=== PATIENT | female | born 1935 | race Caucasian/White ===

== ENCOUNTER 2018-08-12 17:20 | Emergency (ER) | payer MEDICARE ==
[2018-08-12 18:27] LABS: Bilirubin Small (Negative); Blood, Urine Trace (Negative); Clarity Hazy (Clear); Glucose, Urine (Dipstick) Negative (Negative); Leukocyte Small (Negative); Nitrite Positive (Negative); Protein, Urine (Dipstick) 30 mg/dL (Neg-Trace); Urobilinogen 0.2 mg/dL (0.2-1.0); pH, Urine 6.5 (5.0-9.0)
--- NOTE | 2018-08-12 18:30 | CT ---
FCT thoracic spine noncontrast: 08/12/2018 HISTORY: 82-year-old female with persistent thoracic spine pain after fall 6 days ago. FINDINGS: There is compression deformity of the T10 vertebral body with approximately 75% loss of height and mi ld bony retropulsion. Fracture lucencies are visible. There is mild soft tissue edema in the preverte bral space at this level. The rest of the thoracic vertebral body heights are maintained. Pedicles an d posterior elements are intact. IMPRESSION: Acute/subacute traumatic burst fracture of T10
[2018-08-12 18:31] LABS: Bacteria/HPF 3+ HPF (None Seen); RBC/HPF 0-3 HPF (0-3)
--- NOTE | 2018-08-12 18:39 | CT ---
FCT lumbar spine noncontrast: 08/12/2018 HISTORY: 82-year-old female with low back pain after fall 6 days ago FINDINGS: There are 5 lumbar-type vertebrae. Vertebral body heights are maintained. No fracture is identified. At L1-2 there is moderate to severe degenerative disc disease. At L4-5 there is severe bilateral degenerative facet disease causing a grade 1 anterolisthesis of L4 on L5, and this, together with ligamentum flavum thickening, results in severe central spinal canal s tenosis and moderate bilateral neural foraminal stenosis. There is severe bilateral facet DJD at L5-S1. There is a small amount of free fluid in the dependent portion of the pelvic cavity IMPRESSION: 1. No compression fracture identified. 2. Lumbar spondylosis, including severe degenerative disc disease at L1-2, and severe bilateral facet osteoarthrosis at L4-5 and L5-S1. 3. Severe central spinal canal stenosis and grade 1 spondylolisthesis at L4-5.
[2018-08-12] MEDS ORDERED: traMADol HCl 50 MG TAB ONE (19:43)
[2018-08-12] MEDS ORDERED: Ondansetron ODT 4 MG TAB ONE (19:43)
[2018-08-12] MEDS ORDERED: cefTRIAXone\\ROCEPHIN 1 GM VIAL ONE (19:43)
[2018-08-12] MEDS ORDERED: Lidocaine 1% MPF 2 ML VIAL ONE (19:43)
== END 2018-08-12 20:25 | disposition home or self-care (01) ==
LOC: SCSER 17:20
DX: S22.071A Stable burst fracture of T9-T10 vertebra, initial encounter for closed fracture (principal); M47.9 Spondylosis, unspecified; I10 Essential (primary) hypertension; M43.16 Spondylolisthesis, lumbar region; M48.061 Spinal stenosis, lumbar region without neurogenic claudication; K59.00 Constipation, unspecified; W10.9XXA Fall (on) (from) unspecified stairs and steps, initial encounter
CPT/HCPCS: 72128; 72131; 81003; 81015; 96372; J0696; J2001; Q0162

== ENCOUNTER 2018-08-23 14:51 | Outpatient (CLI) | payer MEDICARE ==
--- NOTE | 2018-08-23 15:21 | RAD ---
Exam: 3 views of the lumbosacral spine HISTORY: T10 burst fracture COMPARISON: None FINDINGS: 3 views of the lumbosacral spine shows normal height and alignment of the vertebral bodies and intervertebral discs of the lumbar spine without fracture or subluxation. Posterior facet arthrosis is seen in the lower lumbosacral spine. Small osteophytes are seen in the upper lumbar spin e. Cholecystectomy clips are seen. Vascular calcification are present. The sacroiliac joints are unremar kable. IMPRESSION: Degenerative changes of the lumbar spine as above
--- NOTE | 2018-08-23 15:23 | RAD ---
Exam: 3 views of the thoracic spine HISTORY: T10 burst fracture COMPARISON: None FINDINGS: There is compression deformity of the T10 vertebral body with approximately 60% anterior he ight loss. The vertebral bodies demonstrate normal alignment without subluxation. Mild degenerative changes are seen throughout the thoracic spine. IMPRESSION: T10 burst fracture
== END 2018-08-23 14:52 | disposition home or self-care (01) ==
LOC: TBSIIMAG 14:51
PROVIDERS: ATTEND Surgery
DX: S22.071A Stable burst fracture of T9-T10 vertebra, initial encounter for closed fracture (principal); M47.816 Spondylosis without myelopathy or radiculopathy, lumbar region
CPT/HCPCS: 72072; 72100

== ENCOUNTER 2018-10-04 14:02 | Outpatient (CLI) | payer MEDICARE ==
--- NOTE | 2018-10-04 15:35 | RAD ---
EXAM: THORACIC SPINE THREE VIEWS: 10/04/18 COMPARISON: 08/23/18. HISTORY: Previous fall. Pain. FINDINGS: Diffuse bone demineralization. Stable compression fracture at the T10 level. No significant change in terms of the loss of vertebral body height. Atherosclerosis of the aorta is noted. No additional thoracic spine fractures are appreciated. IMPRESSION: Essentially stable compression fracture at T10 with stable loss of vertebral body height and associa larry kyphosis. POS: OFF
== END 2018-10-04 14:03 | disposition home or self-care (01) ==
LOC: TBSIIMAG 14:02
PROVIDERS: ATTEND Surgery
DX: S22.079A Unspecified fracture of T9-T10 vertebra, initial encounter for closed fracture (principal); M54.5 Low back pain; M54.6 Pain in thoracic spine; M40.204 Unspecified kyphosis, thoracic region
CPT/HCPCS: 72072

== ENCOUNTER 2018-11-13 12:47 | Outpatient (CLI) | payer MEDICARE ==
--- NOTE | 2018-11-13 13:08 | RAD ---
Exam: Thoracic spine 3 views: HISTORY: Thoracic pain, status post T10 burst fracture COMPARISON: 10/04/2018 FINDINGS: Stable T10 burst fracture. Bony demineralization. Generalized spondylosis. IMPRESSION: Stable T10 burst fracture.
== END 2018-11-13 12:48 | disposition home or self-care (01) ==
LOC: TBSIIMAG 12:47
PROVIDERS: ATTEND Surgery
DX: M54.6 Pain in thoracic spine (principal); S22.071D Stable burst fracture of T9-T10 vertebra, subsequent encounter for fracture with routine healing
CPT/HCPCS: 72072

== ENCOUNTER 2020-01-29 10:08 | Outpatient (CLI) | payer MEDICARE ==
--- NOTE | 2020-01-29 11:18 | BD ---
EXAM: DEXA bone density examination HISTORY: Osteoporosis screening COMPARISON: None FINDINGS: L1--bone mineral density 0.943 g/sq cm; T score -0.4. Z score 2.0 L2--bone mineral density 1.019 g/sq cm; T score -0.1; Z score 2.7 L3--bone mineral density 0.916 g/sq cm; T score -1.5; Z score 1.4 L4--bone mineral density 0.839 g/sq cm; T score -2.0, Z score 1.0 Total L1-L4--bone mineral density 0.922 g/sq cm; T score -1.1, Z score 1.7 Left femoral neck--bone mineral density0.517; T score -3.0, Z score -0.6 Total proximal left femur--bone mineral density 0.729; T score -1.7, Z score 0.5 The FRAX estimate for fracture risk is not reported because the T score is at or below -2.5. IMPRESSION: Based on the WHO criteria, the patient's bone mineral density is consideredOsteoporotic. The patient is at high risk for fracture.
--- NOTE | 2020-01-29 11:35 | MMO ---
Bilateral MAMMO Bilat Screen [facility]. CLINICAL HISTORY: Patient is 84 years old and is seen for screening. The patient has a history of left Excisional Biopsy at age 18 - benign. VIEWS: The views performed were: bilateral craniocaudal with tomosynthesis and bilateral mediolateral oblique with tomosynthesis. FILMS COMPARED: The present examination has been compared to a prior imaging study performed at [facility] on 05/17/2017. This study has been interpreted with the assistance of computer-aided detection. MAMMOGRAM FINDINGS: There are scattered fibroglandular densities. There is an area of architectural distortion seen in the upper-outer region of the right breast. In the left breast, there are no suspicious masses, calcifications or areas of architectural distortion. IMPRESSION: AREA OF ARCHITECTURAL DISTORTION IN THE RIGHT BREAST REQUIRES ADDITIONAL EVALUATION. AN ULTRASOUND EXAM IS RECOMMENDED. RECOMMEND DIAGNOSTIC MAMMOGRAM. THE RESULTS OF THIS EXAM WERE SENT TO THE PATIENT. ACR BI-RADS Category 0 - Incomplete: Need additional imaging evaluation. [facility] will notify the patient of the need for additional imaging services. MAMMOGRAPHY NOTE: 1. A negative mammogram report should not delay a biopsy if a dominant of clinically suspicious mass is present. 2. Approximately 10% to 15% of breast cancers are not detected by mammography. 3. Adenosis and dense breasts may obscure an underlying neoplasm. Reported by: LAURA SALGADO MD Electonically Signed: [id number]
== END 2020-01-29 10:09 | disposition home or self-care (01) ==
LOC: BICMAMMO 10:08
PROVIDERS: ATTEND Internal Medicine
DX: Z12.31 Encounter for screening mammogram for malignant neoplasm of breast (principal); M81.0 Age-related osteoporosis without current pathological fracture; Z91.89 Other specified personal risk factors, not elsewhere classified; N64.89 Other specified disorders of breast
CPT/HCPCS: 77063; 77067; 77080

== ENCOUNTER 2020-01-30 13:14 | Outpatient (CLI) | payer MEDICARE ==
--- NOTE | 2020-01-30 14:17 | MMO ---
Right Breast MAMMO Unilat Diag [facility] RT[facility]JOEL. CLINICAL HISTORY: Patient is 84 years old and is seen for additional evaluation requested from prior study. The patient has no family history of breast cancer. The patient has no personal history of cancer. The patient has a history of left Excisional Biopsy at age 18 - benign. VIEWS: The views performed were: right craniocaudal spot compression with tomosynthesis; right mediolateral oblique spot compression with tomosynthesis; and right mediolateral with tomosynthesis. FILMS COMPARED: The present examination has been compared to prior imaging studies performed at [facility] on 01/29/2020 and 01/30/2020, and at [facility] on 05/17/2017. This study has been interpreted with the assistance of computer-aided detection. MAMMOGRAM FINDINGS: There are scattered fibroglandular densities. There is an area of architectural distortion seen in the middle region of the right breast at 10 o'clock. Additional views were performed, confirming spiculation. Ultrasound confirms suspicious lesion. D/W Dr. Dr. Dean over the phone at 2:13 pm on 01/30/2020. D/w patient in person on 01/20/2020 IMPRESSION: AREA OF ARCHITECTURAL DISTORTION IN THE RIGHT BREAST IS SUSPICIOUS. AN ULTRASOUND-GUIDED BREAST BIOPSY IS RECOMMENDED. THE RESULTS OF THIS EXAM WERE SENT TO THE PATIENT. ACR BI-RADS Category 4 - Suspicious abnormality - biopsy should be considered MAMMOGRAPHY NOTE: 1. A negative mammogram report should not delay a biopsy if a dominant of clinically suspicious mass is present. 2. Approximately 10% to 15% of breast cancers are not detected by mammography. 3. Adenosis and dense breasts may obscure an underlying neoplasm. Reported by: CARISSA SHEN MD Electonically Signed: [id number]
--- NOTE | 2020-01-30 14:40 | ULT ---
ULTRASOUND RIGHT BREAST LIMITED: Date: 01/30/2020 HISTORY: 84-year-old female with architectural distortion and spiculation in right upper outer quadrant. TECHNIQUE: Focused ultrasound of right upper outer quadrant. FINDINGS: At the 10 o'clock position, 4 cm from the nipple, there is an approximately 1 cm lesion with ill-defi chanell margins, taller than wide, with strong acoustic shadowing, which corresponds to the architectural distortion on the mammogram. Dr. King discussed the findings and recommendation for biopsy with the patient immediately after the u ltrasound, and then by telephone with Dr. Philip Dean, at 1413 hours on 01/30/2020. IMPRESSION: 1. BI-RADS Category 4 - Suspicious finding. Biopsy should be considered. 2. Recommend ultrasound-guided biopsy of small spiculated lesion at the 10 o'clock position of the r ight upper outer quadrant. POS: OFF
== END 2020-01-30 13:15 | disposition home or self-care (01) ==
LOC: BICMAMMO 13:14
PROVIDERS: ATTEND Internal Medicine
DX: Q83.9 Congenital malformation of breast, unspecified (principal); N64.9 Disorder of breast, unspecified
CPT/HCPCS: 76642; 77065; G0279

== ENCOUNTER → 2020-01-31 | Day surgery (SDC) | payer MEDICARE ==
--- NOTE | 2020-01-31 13:49 | MMO ---
FILMS COMPARED: The present examination has been compared to prior imaging studies performed at [facility] on 01/29/2020 and 01/30/2020, and at [facility] on 05/17/2017. MAMMOGRAM FINDINGS: There is a new biopsy clip seen in the upper-outer region of the right breast. IMPRESSION: NEW BIOPSY CLIP IN THE RIGHT BREAST IS CONFIRMED UTILIZING POST PROCEDURE MAMMOGRAM. Reported by: REECE GUZMAN MD Electonically Signed: [id number]
--- NOTE | 2020-01-31 14:10 | ULT ---
Exam: Ultrasound guided biopsy of the right breast HISTORY: Right breast cancer. Architectural distortion the upper outer quadrant of the right breast Comparison 01/30/2020 FINDINGS: Successful right breast biopsy with ultrasound guidance. A total of 3 14-gauge core biopsy samples we re obtained. Postbiopsy clip was placed. Postbiopsy mammogram was performed. The clip is posterior to the area of architectural distortion. TECHNIQUE: Consent obtained to perform a right breast ultrasound guided biopsy. Right breast was prep ped and draped in a sterile fashion. 1% lidocaine, buffered with sodium bicarbonate was used for local anesthesia. Under ultrasound guidance, 3 separate 14-gauge biopsies were performed. Sample was placed directly in formalin. Biopsy clip was placed. Patient tolerated the procedure well. No immediate or postprocedure complications. Postprocedure mammogram was performed IMPRESSION: Successful right breast biopsy with ultrasound guidance. Final pathologic diagnosis us pe nding.
== END ==
LOC: BICULT 12:39
PROVIDERS: ATTEND Internal Medicine
PROC: 0H9T3ZX Drainage of Right Breast, Percutaneous Approach, Diagnostic (ICD-10-PCS; principal; 2020-01-31)
DX: C50.411 Malignant neoplasm of upper-outer quadrant of right female breast (principal)
CPT/HCPCS: 19083; 88305; 88341; 88342

== ENCOUNTER 2020-03-31 15:10 | Outpatient (CLI) | payer MEDICARE, OTHER ==
--- NOTE | 2020-03-31 16:16 | ULT ---
Thyroid sonogram HISTORY: Right neck mass. FINDINGS: The right thyroid lobe measures up to 5.2 cm. Very heterogeneous echotexture with multiple lobular solid and cystic nodules. The largest is at the inferior pole, with isoechoic solid component and multiple internal cystic components. It is 2.8 cm x 2.5 cm greatest ureters. Isthmus is 0.5 cm thick. The left thyroid lobe is 5.6 cm length, again with very heterogeneous echotexture and multiple lobula r cystic and solid nodules. The largest is at the inferior pole, containing predominantly isoechoic solid component with internal cystic portions. It shows well-circumscribed margins and measures up to 4.3 cm greatest length.. IMPRESSION : Multinodular goiter without a dominant aggressive lesion apparent.
== END 2020-03-31 15:11 | disposition home or self-care (01) ==
LOC: BICULT 15:10
PROVIDERS: ATTEND Surgery
DX: R22.1 Localized swelling, mass and lump, neck (principal); E04.2 Nontoxic multinodular goiter
CPT/HCPCS: 76536

== ENCOUNTER 2023-02-21 14:25 | Outpatient (CLI) | payer MEDICARE, OTHER | END 2023-02-21 14:26 | disposition home or self-care (01) | LOC: BICRAD 14:25 | PROVIDERS: ATTEND Internal Medicine | DX: M54.50 Low back pain, unspecified (principal); S22.071A Stable burst fracture of T9-T10 vertebra, initial encounter for closed fracture; M47.814 Spondylosis without myelopathy or radiculopathy, thoracic region; M85.88 Other specified disorders of bone density and structure, other site; M43.17 Spondylolisthesis, lumbosacral region; M47.816 Spondylosis without myelopathy or radiculopathy, lumbar region; M47.817 Spondylosis without myelopathy or radiculopathy, lumbosacral region | CPT/HCPCS: 72070; 72100 ==

== ENCOUNTER 2023-03-07 14:33 | Inpatient (IN) | payer MEDICARE, OTHER ==
[2023-03-07 15:09] LABS: #Monocytes 0.6 thou/uL (0.11-0.59); #Neutrophils 12.1 thou/uL (1.40-6.50); %Basophils 0.2 % (0.0-1.0); %Monocytes 4.5 % (0.0-10.0); Hematocrit 32.8 % (36.0-47.0); Hemoglobin 11.3 g/dL (12.0-16.0); Mean Corpuscular HGB CONC 34.5 g/dL (32.0-36.0); Mean Corpuscular Hemoglobin 31.8 pg (27.0-31.0); Mean Corpuscular Volume 92.4 fl (78.0-98.0); Mean Platelet Volume 11.4 fL (7.4-10.4); Platelet Count 166 10x3/uL (130-400); RBC Distribution Width 12.6 % (11.5-14.5); Red Blood Cell (RBC) Count 3.55 mill/uL (4.20-5.40); White Blood Cell (WBC) Count 13.3 10x3/uL (4.8-10.8)
[2023-03-07 15:32] LABS: ALT (SGPT) 43 U/L (8-55); AST (SGOT) 54 U/L (5-34); Albumin 3.8 g/dL (3.4-4.8); Alkaline Phosphatase 100 U/L (40-110); Anion Gap 15 mmol/L (10-20); BUN (Urea Nitrogen) 16 mg/dL (9.8-20.1); Bilirubin, Total 2.2 mg/dL (0.2-1.2); Calc. Creatinine Clearance 0 mL/min (70-130); Calcium 9.1 mg/dL (7.8-10.44); Carbon Dioxide 25 mmol/L (23-31); Chloride 105 mmol/L (98-107); Estimated GFR 70; Globulin 2.4 g/dL (2.4-3.5); Glucose 162 mg/dL (83-110); Potassium 2.8 mmol/L (3.5-5.1); Protein, Total 6.2 g/dL (5.8-8.1); Sodium 142 mmol/L (136-145)
[2023-03-07] MEDS ORDERED: Acetaminophen 500 MG TAB ONE (15:47)
[2023-03-07] MEDS ORDERED: cefTRIAXone (ROCEPHIN) 2 GM VIAL ONE (15:47)
[2023-03-07] MEDS ORDERED: Sodium Chloride 0.9% 100 ML ONE (15:48)
[2023-03-07] MEDS ORDERED: Vancomycin 1 GM/200 ML (FROZEN) BAG ONE (16:19)
[2023-03-07 17:37] LABS: SARS-CoV-2 NAA Rapid Test Not Detected (NotDetected)
[2023-03-07] MEDS ORDERED: Potassium Chloride 20 MEQ TAB ONE (17:59)
[2023-03-07] MEDS ORDERED: Magnesium 2 GM/50 ML BAG (IN WATER) ONE (18:00)
[2023-03-07] MEDS ORDERED: Potassium Chloride 20 MEQ/100 ML PREMIX BAG ONE (18:00)
[2023-03-07 20:04] LABS: Bacteria/HPF 3+ HPF (None Seen); Bilirubin Negative (Negative); Blood, Urine 2+ (Negative); CAUTI Indications for Culture Dysuria,urgency,freq; Clarity Turbid (Clear); Glucose, Urine (Dipstick) Normal (Negative); Ketone, Urine Trace mg/dL (Negative); Leukocyte 500 Leu/uL (Negative); Nitrite 2+ (Negative); Protein, Urine (Dipstick) 70 mg/dL (Neg-Trace); Renal Epithelial 0-3 HPF (None Seen); Specific Gravity, Urine 1.014 (1.002-1.036); Squamous Epithelial 0-3 HPF (0-3); Urobilinogen Normal mg/dL (Less than 2); WBC/HPF Greater than 50 HPF (0-3); pH, Urine 5.5 (5.0-9.0)
[2023-03-07 20:06] LABS: Urine Culture Reflex Yes Yes
[2023-03-07] MEDS ORDERED: Ondansetron PF 4 MG/2 ML Vial IVP PRN (21:30)
[2023-03-07] MEDS ORDERED: Ondansetron ODT 4 MG TAB SL PRN (21:30)
[2023-03-07] MEDS ORDERED: Acetaminophen 325 MG TAB PO PRN (21:30)
[2023-03-07 22:51] VITALS: BMI 25.9
[2023-03-08] MEDS ORDERED: Electrolyte Replacement Protocol 1 EACH FS SCH (05:30)
[2023-03-08 05:39] LABS: #Basophils 0.1 thou/uL (0.0-0.2); #Eosinphils 0.1 thou/uL (0.0-0.7); #Monocytes 1.7 thou/uL (0.11-0.59); #Neutrophils 18.7 thou/uL (1.40-6.50); %Basophils 0.2 % (0.0-1.0); %Eosinophils 0.2 % (0.0-10.0); %Lymphocytes 4.9 % (21.0-51.0); %Monocytes 7.6 % (0.0-10.0); Hematocrit 32.6 % (36.0-47.0); Hemoglobin 10.8 g/dL (12.0-16.0); Mean Corpuscular HGB CONC 33.1 g/dL (32.0-36.0); Mean Corpuscular Volume 93.7 fl (78.0-98.0); Mean Platelet Volume 11.7 fL (7.4-10.4); Platelet Count 152 10x3/uL (130-400); Red Blood Cell (RBC) Count 3.48 mill/uL (4.20-5.40); White Blood Cell (WBC) Count 21.8 10x3/uL (4.8-10.8)
[2023-03-08] MEDS: Sodium Chloride 0.9% 1,000 ML IV SCH ×2 (05:43→15:52)
[2023-03-08 06:08] LABS: ALT (SGPT) 43 U/L (8-55); AST (SGOT) 64 U/L (5-34); Albumin 3.5 g/dL (3.4-4.8); Alkaline Phosphatase 93 U/L (40-110); Anion Gap 12 mmol/L (10-20); BUN (Urea Nitrogen) 18 mg/dL (9.8-20.1); Bilirubin, Total 1.5 mg/dL (0.2-1.2); Calc. Creatinine Clearance 44 mL/min (70-130); Calcium 8.8 mg/dL (7.8-10.44); Carbon Dioxide 23 mmol/L (23-31); Chloride 111 mmol/L (98-107); Estimated GFR 64; Globulin 2.4 g/dL (2.4-3.5); Glucose 129 mg/dL (83-110); Magnesium 2.5 mg/dL (1.6-2.6); Potassium 3.8 mmol/L (3.5-5.1); Protein, Total 5.9 g/dL (5.8-8.1); Sodium 142 mmol/L (136-145)
[2023-03-08 06:09] LABS: ALT (SGPT) 48 U/L (8-55); AST (SGOT) 65 U/L (5-34); Albumin 3.3 g/dL (3.4-4.8); Alkaline Phosphatase 89 U/L (40-110); Bilirubin, Direct 0.8 mg/dL (0.1-0.3); Bilirubin, Total 1.8 mg/dL (0.2-1.2); Protein, Total 5.2 g/dL (5.8-8.1)
[2023-03-08] MEDS ORDERED: Vancomycin (BATCH) 1.25 GM in Premix 1 BAG IVPB SCH (09:00)
[2023-03-08] MEDS: Cefepime 2 GM in Sodium Chloride 0.9% 100 ML IVPB SCH ×2 (09:12→22:15)
[2023-03-08] MEDS ORDERED: cefTRIAXone\\ROCEPHIN 1 GM in Sodium Chloride 0.9% 100 ML IVPB SCH (15:00)
[2023-03-08] MEDS ORDERED: Vancomycin HCl 750 MG in Sodium Chloride 0.9% 250 ML 250 ML IVPB SCH (16:00)
[2023-03-08] MEDS ORDERED: Vancomycin 1 GM in Premix 1 BAG IVPB SCH (16:00)
[2023-03-08] MEDS ORDERED: Ondansetron PF 4 MG/2 ML Vial IVP PRN (20:20)
[2023-03-08] MEDS ORDERED: Ondansetron ODT 4 MG TAB PO PRN (20:20)
[2023-03-08] MEDS ORDERED: Acetaminophen 650 MG Suppository PR PRN (20:20)
[2023-03-08] MEDS ORDERED: Acetaminophen 325 MG TAB PO PRN (20:24)
[2023-03-08] MEDS: Cyanocobalamin (Vitamin B-12) 1,000 MCG TAB PO SCH (21:09)
[2023-03-08] MEDS: CO Q-10 CAPSULE 100 MG PO SCH (21:09)
[2023-03-08] MEDS: Atorvastatin Calcium 40 MG TAB PO SCH (21:09)
[2023-03-08] MEDS: Amlodipine 5 MG TAB PO SCH (21:09)
[2023-03-08] MEDS: Calcium Carbonate 600 MG + Vit D TAB PO SCH (21:09)
[2023-03-08] MEDS: Aspirin 81 mg Enteric Coated Tablet PO SCH (21:10)
[2023-03-08] MEDS: Potassium Chloride 8 MEQ TAB PO SCH (21:10)
[2023-03-09] MEDS: Sodium Chloride 0.9% 1,000 ML IV SCH ×3 (03:39→22:00)
[2023-03-09 05:42] LABS: #Eosinphils 0.1 thou/uL (0.0-0.7); #Monocytes 1.3 thou/uL (0.11-0.59); #Neutrophils 10.2 thou/uL (1.40-6.50); %Basophils 0.2 % (0.0-1.0); %Eosinophils 0.6 % (0.0-10.0); %Lymphocytes 10.2 % (21.0-51.0); %Neutrophils 77.6 % (42.0-75.0); Hematocrit 32.9 % (36.0-47.0); Hemoglobin 10.6 g/dL (12.0-16.0); Mean Corpuscular HGB CONC 32.2 g/dL (32.0-36.0); Mean Corpuscular Hemoglobin 31.1 pg (27.0-31.0); Mean Corpuscular Volume 96.5 fl (78.0-98.0); Mean Platelet Volume 12.2 fL (7.4-10.4); Platelet Count 154 10x3/uL (130-400); RBC Distribution Width 13.2 % (11.5-14.5); Red Blood Cell (RBC) Count 3.41 mill/uL (4.20-5.40); White Blood Cell (WBC) Count 13.2 10x3/uL (4.8-10.8)
[2023-03-09 06:07] LABS: Anion Gap 12 mmol/L (10-20); BUN (Urea Nitrogen) 22 mg/dL (9.8-20.1); Calc. Creatinine Clearance 50 mL/min (70-130); Calcium 8.9 mg/dL (7.8-10.44); Carbon Dioxide 23 mmol/L (23-31); Chloride 112 mmol/L (98-107); Estimated GFR 75; Glucose 98 mg/dL (83-110); Potassium 3.5 mmol/L (3.5-5.1); Sodium 143 mmol/L (136-145)
[2023-03-09] MEDS ORDERED: Potassium Bicarbonate/Cit Ac 20 MEQ TAB PO SCH (08:00)
[2023-03-09] MEDS: Loratadine 10 MG TAB PO SCH (08:43)
[2023-03-09] MEDS: Cefepime 2 GM in Sodium Chloride 0.9% 100 ML IVPB SCH ×2 (08:43→20:02)
[2023-03-09] MEDS: Hydrochlorothiazide 25 MG TAB PO SCH (08:43)
[2023-03-09] MEDS: Losartan 25 MG TAB PO SCH (08:44)
[2023-03-09] MEDS: Calcium Carbonate 600 MG + Vit D TAB PO SCH ×2 (08:44→21:58)
[2023-03-09] MEDS: Clopidogrel Bisulfate 75 MG TAB PO SCH (08:44)
[2023-03-09] MEDS: Potassium Chloride 8 MEQ TAB PO SCH ×2 (08:44→21:58)
[2023-03-09] MEDS ORDERED: LOSARTAN PO SCH (09:00)
[2023-03-09] MEDS ORDERED: Letrozole 2.5 MG TAB PO SCH (09:00)
[2023-03-09] MEDS ORDERED: HYDROCHLOROTHIAZIDE PO SCH (09:00)
[2023-03-09] MEDS ORDERED: Labetalol HCl 100 MG/20 ML VIAL SLOW IVP PRN (14:58)
[2023-03-09] MEDS ORDERED: Ondansetron PF 4 MG/2 ML Vial IVP SCH (20:45)
[2023-03-09] MEDS: Amlodipine 5 MG TAB PO SCH (21:24)
[2023-03-09] MEDS: CO Q-10 CAPSULE 100 MG PO SCH (21:24)
[2023-03-09] MEDS: Aspirin 81 mg Enteric Coated Tablet PO SCH (21:24)
[2023-03-09] MEDS: Atorvastatin Calcium 40 MG TAB PO SCH (21:58)
[2023-03-09] MEDS: Cyanocobalamin (Vitamin B-12) 1,000 MCG TAB PO SCH (21:58)
[2023-03-10] MEDS: Cefepime 2 GM in Sodium Chloride 0.9% 100 ML IVPB SCH ×2 (09:21→19:56)
[2023-03-10] MEDS: Clopidogrel Bisulfate 75 MG TAB PO SCH (09:22)
[2023-03-10] MEDS: Hydrochlorothiazide 25 MG TAB PO SCH (09:22)
[2023-03-10] MEDS: Potassium Chloride 8 MEQ TAB PO SCH ×2 (09:22→20:03)
[2023-03-10] MEDS: Sodium Chloride 0.9% 1,000 ML IV SCH (09:22)
[2023-03-10] MEDS: Loratadine 10 MG TAB PO SCH (09:22)
[2023-03-10] MEDS: Calcium Carbonate 600 MG + Vit D TAB PO SCH ×2 (09:22→20:03)
[2023-03-10] MEDS: Losartan 25 MG TAB PO SCH (09:22)
[2023-03-10] MEDS ORDERED: Furosemide 40 MG/4 ML VIAL SLOW IVP SCH (10:22)
[2023-03-10] MEDS ORDERED: Ipratropium/Albuterol 3 ML NEB NEB PRN (10:23)
[2023-03-10] MEDS ORDERED: Ipratropium/Albuterol 3 ML NEB NEB SCH (10:30)
[2023-03-10] MEDS: Amlodipine 5 MG TAB PO SCH (20:03)
[2023-03-10] MEDS: Atorvastatin Calcium 40 MG TAB PO SCH (20:04)
[2023-03-10] MEDS: Cyanocobalamin (Vitamin B-12) 1,000 MCG TAB PO SCH (20:04)
[2023-03-10] MEDS: CO Q-10 CAPSULE 100 MG PO SCH (20:04)
[2023-03-10] MEDS: Aspirin 81 mg Enteric Coated Tablet PO SCH (20:04)
[2023-03-11 05:52] LABS: #Eosinphils 0.1 thou/uL (0.0-0.7); #Monocytes 1.3 thou/uL (0.11-0.59); %Basophils 0.3 % (0.0-1.0); %Eosinophils 1.6 % (0.0-10.0); %Monocytes 14.5 % (0.0-10.0); %Neutrophils 69.1 % (42.0-75.0); Hematocrit 30.9 % (36.0-47.0); Hemoglobin 10.2 g/dL (12.0-16.0); Mean Corpuscular Hemoglobin 30.6 pg (27.0-31.0); Mean Corpuscular Volume 92.8 fl (78.0-98.0); Mean Platelet Volume 11.2 fL (7.4-10.4); Platelet Count 172 10x3/uL (130-400); RBC Distribution Width 12.9 % (11.5-14.5); Red Blood Cell (RBC) Count 3.33 mill/uL (4.20-5.40); White Blood Cell (WBC) Count 8.7 10x3/uL (4.8-10.8)
[2023-03-11 06:25] LABS: ALT (SGPT) 56 U/L (8-55); AST (SGOT) 60 U/L (5-34); Alkaline Phosphatase 103 U/L (40-110); Anion Gap 13 mmol/L (10-20); BUN (Urea Nitrogen) 16 mg/dL (9.8-20.1); Calc. Creatinine Clearance 51 mL/min (70-130); Calcium 9.3 mg/dL (7.8-10.44); Carbon Dioxide 27 mmol/L (23-31); Chloride 105 mmol/L (98-107); Estimated GFR 76; Globulin 2.8 g/dL (2.4-3.5); Glucose 105 mg/dL (83-110); Potassium 3.3 mmol/L (3.5-5.1); Protein, Total 5.8 g/dL (5.8-8.1); Sodium 142 mmol/L (136-145)
[2023-03-11] MEDS ORDERED: Potassium Chloride 20 MEQ TAB PO SCH (08:00)
[2023-03-11] MEDS ORDERED: FLU VACC QS2023(65UP)/MF59C/PF 60 MCG/0.5 ML SYRINGE IM ONE (09:00)
[2023-03-11] MEDS: Clopidogrel Bisulfate 75 MG TAB PO SCH (10:23)
[2023-03-11] MEDS: Hydrochlorothiazide 25 MG TAB PO SCH (10:23)
[2023-03-11] MEDS: Potassium Chloride 8 MEQ TAB PO SCH (10:24)
[2023-03-11] MEDS: Loratadine 10 MG TAB PO SCH (10:24)
[2023-03-11] MEDS: Cefepime 2 GM in Sodium Chloride 0.9% 100 ML IVPB SCH (10:26)
[2023-03-11] MEDS ORDERED: Potassium Bicarbonate/Cit Ac 20 MEQ TAB PO SCH (10:30)
[2023-03-11] MEDS ORDERED: Ciprofloxacin 500 MG TAB PO SCH (10:45)
[2023-03-11] MEDS ORDERED: Furosemide 40 MG TAB PO SCH (11:00)
[2023-03-11 14:34] VITALS: BP 147/86; TEMP 97.9
[2023-03-11] MEDS ORDERED: Losartan 25 MG TAB PO SCH (21:00)
== END 2023-03-11 14:05 | disposition home or self-care (01) | DRG 872 ==
LOC: ERS 14:33 → T4-B 21:11 → OBSVTOIN 03-08 10:40
PROVIDERS: ADMIT Student in an Organized Health Care Education/Training Program; ATTEND Family Medicine
DX: A41.9 Sepsis, unspecified organism (principal); I69.351 Hemiplegia and hemiparesis following cerebral infarction affecting right dominant side; N39.0 Urinary tract infection, site not specified; I10 Essential (primary) hypertension; C50.919 Malignant neoplasm of unspecified site of unspecified female breast; E87.6 Hypokalemia; E80.6 Other disorders of bilirubin metabolism; E87.70 Fluid overload, unspecified; E78.5 Hyperlipidemia, unspecified; Z88.5 Allergy status to narcotic agent; Z79.82 Long term (current) use of aspirin; Z79.899 Other long term (current) drug therapy; Z90.49 Acquired absence of other specified parts of digestive tract; Z90.710 Acquired absence of both cervix and uterus; Z90.89 Acquired absence of other organs; Z20.822 Contact with and (suspected) exposure to COVID-19
CPT/HCPCS: 36415; 71045; 71046; 76705; 80048; 80053; 81001; 83605; 83735; 85025; 87040; 87077; 87086; 87149; 87186; 93005; 94640; 96365; 96367; 96375; J0692; J0696; J1940; J2405; J3370-JW; J3475; J3480; J3490; J7030; J7050; J7620; Q0162

== ENCOUNTER 2023-04-19 09:00 | Outpatient (CLI) | payer MEDICARE | END 2023-04-19 09:01 | disposition home or self-care (01) | LOC: BICMAMMO 09:00 | PROVIDERS: ATTEND Internal Medicine Hematology & Oncology | DX: C50.811 Malignant neoplasm of overlapping sites of right female breast (principal) | CPT/HCPCS: 77066; G0279 ==

== ENCOUNTER 2025-03-08 09:07 | Outpatient (CLI) | payer MEDICARE | END 2025-03-08 09:08 | disposition home or self-care (01) | LOC: MRI 09:07 | PROVIDERS: ATTEND Internal Medicine | DX: M54.50 Low back pain, unspecified (principal); M48.061 Spinal stenosis, lumbar region without neurogenic claudication; M48.07 Spinal stenosis, lumbosacral region; M48.05 Spinal stenosis, thoracolumbar region | CPT/HCPCS: 72148 ==